=== PATIENT | female | born 1930 | race Caucasian/White ===

== ENCOUNTER 2018-01-06 18:20 | Emergency (ER) | payer OTHER ==
[~2018-01-06] VITALS: Ht 154.9 cm; Wt 54.4 kg
[~2018-01-06 18:20] MED LIST: AMBEREN; AROMASIN25 MG PO; ASPIRIN EC81 M1; CALCIUM 600 +1 EAC5; CLOBETASOL EMOL15 GM TP; FASLODEX250 MG/5 M IM; HYDROCODONE-AP1 EAC6 PO; KEFLEX500 MG PO; NORCO 5-325 TA1 EACH PO; NORVASC 5 MG TAB5 MG; SIMVASTATIN20 MG; SPIRONOLACTONE25 M1; VALTREX1000 MG PO; VITAMIN D35000 UNI1
[2018-01-06] MEDS ORDERED: HYDROCODONE-AP1 EAC6 PO (19:51)
[2018-01-06 20:09] VITALS: BP 143/50
== END 2018-01-06 20:10 | disposition home or self-care (01) ==
LOC: M.ERS 18:20
DX: M25.552 Pain in left hip (principal); I11.0 Hypertensive heart disease with heart failure; I50.9 Heart failure, unspecified; Z85.830 Personal history of malignant neoplasm of bone; W18.09XA Striking against other object with subsequent fall, initial encounter; Y93.89 Activity, other specified; Y92.89 Other specified places as the place of occurrence of the external cause; Y99.8 Other external cause status

== ENCOUNTER 2019-05-18 09:25 | Emergency (ER) | payer OTHER ==
[~2019-05-18] VITALS: Ht 152.4 cm; Wt 52.2 kg
[2019-05-18 10:22] LABS: ABSOLUTE EOSINOPHILS 0.2 thou/uL (0.0-0.7); ABSOLUTE LYMPHOCYTES 2.2 thou/uL (0.8-5.3); ABSOLUTE MONOCYTES 0.6 thou/uL (0.0-1.2); ABSOLUTE NEUTROPHILS 2.4 thou/uL (1.6-8.1); BASOPHILS 0.9 %; EOSINOPHILS 3.8 %; HEMATOCRIT 35.8 % (37.0-47.0); MCH 32.7 pg (26.0-34.0); MCHC 33.5 g/dL (28.0-37.0); MCV 97.5 fL (80.0-100.0); MONOCYTES 10.2 %; MPV 7.3 fl. (7.2-11.1); NUCLEATED RBCS 1 /100WBC; PLATELET COUNT* 270 thou/uL (150-400); POLYS 44.1 %; RBC 3.68 mil/uL (4.20-5.00); RDW-CV 16.4 % (10.5-14.5); WBC 5.4 thou/uL (4.0-11.0)
[2019-05-18 10:35] LABS: ANION GAP 14 mmol/L (7-16); BUN 35 mg/dL (7-18); CALCIUM 8.9 mg/dL (8.5-10.1); CHLORIDE 100 mmol/L (98-107); CO2 23 mmol/L (21-32); CREATININE 1.6 mg/dL (0.6-1.3); GLUCOSE 114 mg/dL (70-99); POTASSIUM 4.4 mmol/L (3.5-5.1); SODIUM 137 mmol/L (136-145)
[2019-05-18 10:46] LABS: ALKALINE PHOSPHATASE 118 U/L (46-116); LIPASE 135 U/L (73-393); NT-PRO BRAIN NAT PEPTIDE 1362 pg/mL (<300); SGOT 92 U/L (15-37); SGPT 56 U/L (30-65); TOTAL PROTEIN 7.3 g/dL (6.4-8.2); TROPONIN-I LEVEL <0.06 ng/mL (<0.06)
[2019-05-18 11:32] LABS: APTT 31.3 Seconds (25.0-31.3); INR 1.2; PROTIME 11.9 Seconds (9.20-11.50)
[2019-05-18 12:35] VITALS: BP 150/57
--- NOTE | 2019-05-19 10:53 | EKG ---
[place] [address] ELECTROCARDIOGRAM REPORT Name: ABDI ROBERTSON Room: [facility] Jon#: [id number] Admission: 05/18/19 Attend Phys: Discharge: 05/18/19 Date of : [birth year] Report #: [id number] THIS REPORT FOR: //name// [facility] ED Test Date: 2019-05-18 Test Time: 10:17:52 Pat Name: ABDI ORBERTSON Department: Room: Gender: F Final [employer] Worker: : 1930 Requested By: Osito De Anda Order Number: [id number] MD: Jaswinder Morales Measurements Intervals Vian Rate: 67 P: 34 WY: 158 QRS: 5 QRSD: 109 T: 56 QT: 390 QTc: 412 Interpretive Statements Sinus rhythm Probable left atrial enlargement Compared to ECG 11/27/2011 08:05:45 No significant changes Electronically Signed On 05-19-2019 10:52:43 CDT by Jaswinder Morales [email or web address] <ELECTRONICALLY SIGNED> By: Jaswinder Morales MD, [facility] 05/19/19 [id number] Jaswinder Morales MD, FACC /EPI
== END 2019-05-18 12:35 | disposition short-term general hospital (02) ==
LOC: M.ERS 09:25
PROVIDERS: Physician Assistant
DX: S22.080A Wedge compression fracture of T11-T12 vertebra, initial encounter for closed fracture (principal); I62.00 Nontraumatic subdural hemorrhage, unspecified; R41.0 Disorientation, unspecified; I11.0 Hypertensive heart disease with heart failure; I50.9 Heart failure, unspecified; E78.00 Pure hypercholesterolemia, unspecified; Z85.830 Personal history of malignant neoplasm of bone; X58.XXXA Exposure to other specified factors, initial encounter; Y93.89 Activity, other specified; Y92.89 Other specified places as the place of occurrence of the external cause; Y99.8 Other external cause status